=== PATIENT | female | born 1980 | race Caucasian/White ===

== ENCOUNTER → 2017-03-12 | Emergency (ER) | payer SELFPAY ==
[~2017-03-12] VITALS: Ht 154.9 cm; Wt 63.5 kg
[~2017-03-12] MED LIST: Tetanus/Diptheria/Pertussis Vaccine 0.5ml Syr IM ONE
[2017-03-12 19:25] VITALS: BP 141/88
[2017-03-12 19:40] VITALS: BP 141/88
--- NOTE | 2017-03-12 20:46 | Emergency Room Report ---
History of Present Illness General Chief Complaint: Animal Bite Source: Patient Present Illness HPI This patient left prior to being fully evaluated by myself and no physical exam was performed. Allergies: Coded Allergies: No Known Allergies (Unverified , 03/12/17) Patient History Last Menstrual Period: 03/09/17 Now: No : 3 Para: 3 Nursing Documentation-[facility] Past Medical History: No Stated History Physical Exam Vital Signs Date Time Temp Pulse Resp B/P (MAP) Pulse Ox O2 Delivery O2 Flow Rate FiO2 03/12/17 19:20 97.9 89 14 141/88 97 Room Air Medical Decision Making PA Attestation Dr. Hargrove is my supervising Physician whom patient management has been discussed with. ER Course This patient left prior to evaluation by medical provider. DISPOSITION: Left without being seen. Last Vital Signs Date Time Temp Pulse Resp B/P (MAP) Pulse Ox O2 Delivery O2 Flow Rate FiO2 03/12/17 19:25 97.9 89 14 141/88 97 Room Air Disposition: LEFT W/OUT BEING SEEN Condition: Unknown Scripts No Active Prescriptions or Reported Meds Mallika Adkins Mar 12, 2017 20:46
== END | disposition left against medical advice (07) ==
LOC: EMR 19:45
DX: Z53.21 Procedure and treatment not carried out due to patient leaving prior to being seen by health care provider (principal)
CPT/HCPCS: 99281